=== PATIENT | female | born 1970 | race American Indian/Alaskan Native ===

== ENCOUNTER 2017-05-04 16:02 | Outpatient (CLI) | payer OTHER ==
--- NOTE | 2017-05-04 23:18 | XRay Report ---
FINAL REPORT PROCEDURE: XR ANKLE 2V RT TECHNIQUE: RIGHT ankle radiographs, AP, lateral, and oblique views. CPT 67968 HISTORY: PAIN IN RIGHT ANKLE AND JOINTS OF RIGHT FOOT COMPARISON: No prior studies are available for comparison. FINDINGS: Fracture (s) and/or Dislocation(s): None. Alignment: Normal. 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 Soft tissues: There is mild generalized soft tissue swelling.. Bone mineralization: Normal. Foreign bodies: None. Calcaneal spurring: None. There is hardware transfixing the talus and calcaneus and proximal tarsal bones. IMPRESSION: There is no fracture or malalignment. There are degenerative and postsurgical changes as described and soft tissue swelling..
--- NOTE | 2017-05-04 23:22 | XRay Report ---
FINAL REPORT PROCEDURE: XR SPINE LUMBOSACRAL 2-3V TECHNIQUE: Lumbar spine radiographs, including AP, lateral, bilateral oblique, flexion, and extension views. CPT [id number] HISTORY: LUMBAGO WITH SCIATICA COMPARISON: No prior studies are available for comparison. FINDINGS: Alignment in neutral position: Normal . Vertebral body movement with flexion and extension: Physiologic . Vertebral body heights/Disk spaces: Normal . Fracture(s): None . Facets: Normal . Bone mineralization: Normal . IMPRESSION: Casey Examination.
== END 2017-05-04 16:03 | disposition home or self-care (01) ==
LOC: XRAY 16:02
PROVIDERS: ATTEND Internal Medicine
DX: Z02.71 Encounter for disability determination (principal); M19.071 Primary osteoarthritis, right ankle and foot; M54.42 Lumbago with sciatica, left side; Z87.81 Personal history of (healed) traumatic fracture
CPT/HCPCS: 72100